=== PATIENT | male | born 1985 | race Caucasian/White ===

== ENCOUNTER 2016-12-09 11:14 | Emergency (ER) | payer SELFPAY ==
[2016-12-09] MEDS ORDERED: OXYCODONE-ACETAMINOPHEN 5-325 MG TABLET PO ONE (11:33)
[2016-12-09] MEDS ORDERED: ONDANSETRON 4 MG TAB.RAPDIS SL ONE (11:33)
--- NOTE | 2016-12-09 11:35 | ER Document Report ---
ED Medical Screen (RME) - General Chief Complaint: Abdominal Pain Stated Complaint: POSSIBLE HERNIA Time Seen by Provider: 12/09/16 11:22 Mode of Arrival: Ambulatory Information source: Patient TRAVEL OUTSIDE OF THE [place] IN LAST 30 DAYS: No - HPI Patient complains to provider of: Hernia pain Onset: This morning Notes: 12/09/16 11:34 Patient is a 31-year-old male with a history of a hernia that was repaired at age 16, over the past few months he has been having problems with the hernia popping out, this morning it was out for approximately 30 minutes before he could get it back in and is now having continued pain and blood in his stools - Related Data Allergies/Adverse Reactions: codeine Allergy (Verified 12/09/16 11:22) Past Medical History - Social History Chew tobacco use (# tins/day): No Frequency of alcohol use: None Drug Abuse: None Family history: Reviewed & Not Pertinent Renal/ Medical History: Denies: Hx Peritoneal Dialysis - Immunizations Hx Diphtheria, Pertussis, Tetanus Vaccination: Yes Physical Exam - Vital signs Vitals: Temp Pulse Resp BP Pulse Ox 98.8 F 100 18 175/97 H 94 12/09/16 11:17 12/09/16 11:17 12/09/16 11:17 12/09/16 11:17 12/09/16 11:17 Course - Vital Signs Vital signs: Temp Pulse Resp BP Pulse Ox 98.8 F 100 18 175/97 H 94 12/09/16 11:17 12/09/16 11:17 12/09/16 11:17 12/09/16 11:17 12/09/16 11:17
--- NOTE | 2016-12-09 11:58 | ER Document Report ---
ED GI/ - General Chief Complaint: Abdominal Pain Stated Complaint: POSSIBLE HERNIA Time Seen by Provider: 12/09/16 11:22 Mode of Arrival: Ambulatory Notes: 31 yo male had left inquinal hernia repair age 16 in [place], noticed it started bulgin when stands for 6 months. Last night while in bed, shifted 1 side to the other, it popped out while using mucles but last night had to push harder to get it back in- in less than 30 minutes. was a relief but still throbbing. 3 bm's since saw red blood with it. No anal pain. TRAVEL OUTSIDE OF THE [place] IN LAST 30 DAYS: No - Related Data Allergies/Adverse Reactions: No Known Allergies Allergy (Verified 12/09/16 12:17) Past Medical History - General Information source: Patient - Social History Smoking Status: Never Smoker Chew tobacco use (# tins/day): No Frequency of alcohol use: None Drug Abuse: None Lives with: Spouse/Significant other Family History: Reviewed & Not Pertinent - Medical History Medical History: Negative Renal/ Medical History: Denies: Hx Peritoneal Dialysis Past Surgical History: Reports: Hx Herniorrhaphy - age 16 left inquinal [place] - Immunizations Hx Diphtheria, Pertussis, Tetanus Vaccination: Yes Review of Systems - Review of Systems Constitutional: No symptoms reported EENT: No symptoms reported Cardiovascular: No symptoms reported Respiratory: No symptoms reported Gastrointestinal: See HPI Genitourinary: No symptoms reported Male Genitourinary: No symptoms reported Musculoskeletal: No symptoms reported Skin: No symptoms reported Hematologic/Lymphatic: No symptoms reported Neurological/Psychological: No symptoms reported Physical Exam - Vital signs Vitals: Temp Pulse Resp BP Pulse Ox 98.8 F 100 18 175/97 H 94 12/09/16 11:17 12/09/16 11:17 12/09/16 11:17 12/09/16 11:17 12/09/16 11:17 Interpretation: Normal - Notes Notes: agreed to be standby for the exam - General General appearance: Appears well, Alert - HEENT Head: Normocephalic, Atraumatic Eyes: Normal Conjunctiva: Normal Pupils: PERRL Neck: Supple. No: Lymphadenopathy - Respiratory Respiratory status: No respiratory distress Chest status: Nontender Breath sounds: Normal Chest palpation: Normal - Cardiovascular Rhythm: Regular Heart sounds: Normal auscultation Murmur: No - Abdominal Inspection: Normal Distension: No distension Bowel sounds: Normal Tenderness: Nontender Organomegaly: No organomegaly - Rectal Hemorrhoids: Internal - anal canal with fissure in 1 hemorrhoid that bled when I touched it. - Genitourinary Tenderness: Other - mild tender over direct left inquinal hernia which reduces easily Scrotum: Normal - Back Back: Normal, Nontender - Extremities General upper extremity: Normal inspection, Nontender, Normal color, Normal ROM , Normal temperature General lower extremity: Normal inspection, Nontender, Normal color, Normal ROM , Normal temperature, Normal weight bearing. No: Derrick's sign - Neurological Neuro grossly intact: Yes Cognition: Normal Orientation: AAOx4 [place] Coma Scale Eye Opening: Spontaneous [place] Coma Scale Verbal: Oriented [place] Coma Scale Motor: Obeys Commands Cloevr Coma Scale Total: 15 Speech: Normal Motor strength normal: LUE, RUE, LLE, RLE Sensory: Normal - Psychological Associated symptoms: Normal affect, Normal mood - Skin Skin Temperature: Warm Skin Moisture: Dry Skin Color: Normal Skin irregularity: negative: Rash Course - Vital Signs Vital signs: Temp Pulse Resp BP Pulse Ox 98.8 F 74 18 160/78 H 98 12/09/16 11:17 12/09/16 13:13 12/09/16 13:13 12/09/16 13:13 12/09/16 13:13 - Laboratory Result Diagrams: 12/09/16 11:47 12/09/16 11:47 Laboratory results interpreted by me: 12/09/16 12/09/16 11:47 11:47 WBC 11.6 H Glucose 121 H Direct Bilirubin 0.6 H AST 202 H ALT 170 H Alkaline Phosphatase 135 H Discharge - Discharge Clinical Impression: elevated liver enzymes, Reducible left inguinal hernia, anal hemorrhoid fissure Condition: Good Disposition: HOME, SELF-CARE Instructions: Anal Fissure ([facility]), Hemorrhoids ([facility]), Hernia ([facility]) Additional Instructions: elevated liver enzymes needs to be worked up with your telesales manager at [facility] no alcohol or tylenol see the general surgeon for the anal hemorrhoids and the left inquinal hernia if you are unable to reduce the hernia like you did today return immediately to the ER, or you develop fever, increased pain wear the hernia belt to keep the hernia reduced if possible no heavy lifting or straining keep stool soft with over the counter stool softner Please complete the patient satisfaction survey if you get one, and return it.. If you do not receive a survey, then you can go to the [facility] website, [email or web address] and place your comments about your very good care. Thank you very much. It was a pleasure being your medical provider today. Forms: Return to Work Referrals: ALLAN SEBASTIAN MD [ACTIVE STAFF] - Follow up tomorrow (call for appointment)
[2016-12-09 12:20] LABS: PROTHROMBIN TIME 12.6 SEC (11.4-15.4)
[2016-12-09 12:21] LABS: PARTIAL THROMBOPLASTIN TIME 27.7 SEC (23.5-35.8)
[2016-12-09 12:28] LABS: ABSOLUTE BASOPHILS # (AUTO) 0.1 10^3/uL (0.0-0.2); ABSOLUTE EOSINOPHILS # (AUTO) 0.1 10^3/uL (0.0-0.6); ABSOLUTE LYMPHOCYTES (AUTO) 2.4 10^3/uL (0.5-4.7); ABSOLUTE MONOCYTES (AUTO) 0.9 10^3/uL (0.1-1.4); ABSOLUTE NEUT (AUTO) 8.1 10^3/uL (1.7-8.2); BASOPHILS % (AUTO) 0.8 % (0-2); EOSINOPHILS % (AUTO) 0.8 % (0-6); HEMATOCRIT 48.1 % (37.9-51.0); HGB HCT DIFFERENCE -0.1; MEAN CORPUSCULAR HEMOGLOBIN 29.4 pg (27.0-33.4); MEAN CORPUSCULAR HGB CONC 33.2 g/dL (32.0-36.0); MEAN CORPUSCULAR VOLUME 89 fl (80-97); MONOCYTES % (AUTO) 7.4 % (3-13); RED BLOOD COUNT 5.43 10^6/uL (4.35-5.55); RED CELL DISTRIBUTION WIDTH 13.7 % (11.5-14.0); WHITE BLOOD COUNT 11.6 10^3/uL (4.0-10.5)
[2016-12-09 12:43] LABS: ALANINE AMINOTRANSFERASE 170 U/L (21-72); ALBUMIN 4.5 g/dL (3.5-5.0); ALKALINE PHOSPHATASE 135 U/L (38-126); ANION GAP 13 (5-19); ASPARTATE AMINO TRANSFERASE 202 U/L (17-59); BILIRUBIN,DIRECT 0.6 mg/dL (0.0-0.4); BILIRUBIN,TOTAL 0.9 mg/dL (0.2-1.3); BLOOD UREA NITROGEN 11 mg/dL (7-20); CALCIUM 9.9 mg/dL (8.4-10.2); CARBON DIOXIDE 24 mmol/L (22-30); CHLORIDE 104 mmol/L (98-107); CREATININE RESULT 0.65 mg/dL (0.52-1.25); GLUCOSE 121 mg/dL (75-110); POTASSIUM 4.5 mmol/L (3.6-5.0); SODIUM 140.9 mmol/L (137-145); TOTAL PROTEIN 7.6 g/dL (6.3-8.2)
[2016-12-09 13:52] VITALS: BP 160/78
== END 2016-12-09 13:18 | disposition home or self-care (01) ==
LOC: ER 11:14
DX: K40.90 Unilateral inguinal hernia, without obstruction or gangrene, not specified as recurrent (principal); K64.8 Other hemorrhoids; K60.2 Anal fissure, unspecified; R74.8 Abnormal levels of other serum enzymes; R10.9 Unspecified abdominal pain
CPT/HCPCS: 99284; 36415; 85025; 85610; 85730; 80053; S0119

== ENCOUNTER 2017-11-10 09:13 | Emergency (ER) | payer MEDICAID ==
[2017-11-10 09:23] VITALS: BP 143/77
--- NOTE | 2017-11-10 09:54 | ER Document Report ---
ED Medical Screen (RME) - General Chief Complaint: Abscess Stated Complaint: POSSIBLE ABSCESS Time Seen by Provider: 11/10/17 09:40 Mode of Arrival: Ambulatory Information source: Patient Notes: Patient presents complaining of abscess to the buttocks for the past 3 days. Patient denies any fever. TRAVEL OUTSIDE OF THE [place] IN LAST 30 DAYS: No - Related Data Allergies/Adverse Reactions: No Known Allergies Allergy (Verified 12/09/16 12:17) Past Medical History - Social History Chew tobacco use (# tins/day): No Frequency of alcohol use: None Drug Abuse: Methamphetamine Family history: Reviewed & Not Pertinent Renal/ Medical History: Denies: Hx Peritoneal Dialysis Past Surgical History: Reports: Hx Herniorrhaphy - age 16 left inquinal in [place] - Immunizations Hx Diphtheria, Pertussis, Tetanus Vaccination: Yes Physical Exam - Vital signs Vitals: Temp Pulse Resp BP Pulse Ox 98.3 F 67 18 143/77 H 100 11/10/17 09:22 11/10/17 09:22 11/10/17 09:22 11/10/17 09:22 11/10/17 09:22 - Rectal Hemorrhoids: Other - Perianal abscess Course - Vital Signs Vital signs: Temp Pulse Resp BP Pulse Ox 98.3 F 67 18 143/77 H 100 11/10/17 09:22 11/10/17 09:22 11/10/17 09:22 11/10/17 09:22 11/10/17 09:22
--- NOTE | 2017-11-10 10:03 | ER Document Report ---
ED General - General Chief Complaint: Abscess Stated Complaint: POSSIBLE ABSCESS Time Seen by Provider: 11/10/17 09:40 Mode of Arrival: Ambulatory TRAVEL OUTSIDE OF THE [place] IN LAST 30 DAYS: No - HPI Notes: 32-year-old male presents to the ED with an already drained rectal external abscess that started 3 days ago. States drainage started once he was placed in a room in triage. States he smelled something "disgusting". Patient denies a history of MRSA. Has not tried any [id number] medications. Worse with time, nothing makes better. Pain is 8 out of 10, which has decreased since abscess had started to drain. Denies any fevers or chills. History of abscesses in same area. Denies fevers, chills, chest pain,palpitations, shortness of breath, dyspnea, nausea, vomiting, diarrhea, abdominal pain, hematuria,blurred vision, double vision, loss of vision, speech changes, LH, dizziness, syncope, headaches, wheezing, ST, URI, neck pain, weakness, bowel or bladder dysfunction, saddle anesthesia, numbness or tingling in bilateral upper or lower extremities equally, muscle paralysis, weakness in bilateral upper or lower extremities equally or rash. Denies IV drug use. - Related Data Allergies/Adverse Reactions: No Known Allergies Allergy (Verified 12/09/16 12:17) Past Medical History - General Information source: Patient - Social History Smoking Status: Current Some Day Smoker Chew tobacco use (# tins/day): No Frequency of alcohol use: None Drug Abuse: Marijuana Family History: Reviewed & Not Pertinent Patient has suicidal ideation: No Patient has homicidal ideation: No Renal/ Medical History: Denies: Hx Peritoneal Dialysis Past Surgical History: Reports: Hx Herniorrhaphy - age 16 left inquinal in [place] - Immunizations Hx Diphtheria, Pertussis, Tetanus Vaccination: Yes Review of Systems - Review of Systems Constitutional: No symptoms reported EENT: No symptoms reported Cardiovascular: No symptoms reported Respiratory: No symptoms reported Gastrointestinal: No symptoms reported Genitourinary: No symptoms reported Male Genitourinary: No symptoms reported Musculoskeletal: No symptoms reported Skin: See HPI Hematologic/Lymphatic: No symptoms reported Neurological/Psychological: No symptoms reported Physical Exam - Vital signs Vitals: Temp Pulse Resp BP Pulse Ox 98.3 F 67 18 143/77 H 100 11/10/17 09:22 11/10/17 09:22 11/10/17 09:22 11/10/17 09:22 11/10/17 09:22 - Notes Notes: PHYSICAL EXAMINATION: GENERAL: Well-appearing, well-nourished and in no acute distress. HEAD: Atraumatic, normocephalic. EYES: Pupils equal round and reactive to light, extraocular movements intact, sclera anicteric, conjunctiva are normal. ENT: Nares patent, oropharynx clear without exudates. Moist mucous membranes. NECK: Normal range of motion, supple without lymphadenopathy LUNGS: Breath sounds clear to auscultation bilaterally and equal. No wheezes rales or rhonchi. HEART: Regular rate and rhythm without murmurs ABDOMEN: Soft, nontender, nondistended abdomen. No guarding, no rebound. No masses appreciated. Musculoskeletal: Normal range of motion, no pitting or edema. No cyanosis. NEUROLOGICAL: Cranial nerves grossly intact. Normal speech, normal gait. Normal sensory, motor exams PSYCH: Normal mood, normal affect. SKIN: Warm, Dry, normal turgor, no rashes or lesions noted. Right external rectal abscess approximately 2 cm x 3 0.5 cm with purulent drainage on evaluation, no surrounding cellulitis. No surrounding lymphadenopathy. Course - Re-evaluation Re-evalutation: 11/10/17 10:30 32yr old male who is afebrile, vitals stable and in no distress presents for already draining rectal abscess. On evaluation, abscess had already drained. This provider drained what was left of abscess, irrigated with high-pressure normal saline, we did not need packing. Denies any fevers or chills. Cultured. No tunneling noted. No need for wound packing. Patient given [address] [place] was to go for pain control advised to not drive, drink alcohol or operate heavy machinery as medication because sedation or impairment of cognition. Advised to soak in hot bath to help clean wound, wash with soap and water twice a day, observe area for any erythema, induration or fluctuatance. I have reevaluated this patient multiple times and no significant life threatening changes, no signs of toxicity, sepsis or peritonitis are noted. The patient and I have discussed the diagnosis and risks, and we agree with discharging home and close follow-up. We also discussed returning to the Emergency Department immediately if new or worsening symptoms occur with the understanding that symptoms and presentations can change. At this time will discharge with return precautions and follow-up recommendations. Verbal discharge instructions given a the bedside and opportunity for questions given. We have discussed the symptoms which are most concerning (e.g., saddle anesthesia, urinary or bowel incontinence or retention, changing or worsening pain) that necessitate immediate return. Medication warnings reviewed. All questions and concerns answered by this provider. Patient is in agreement with this plan and has verbalized understanding of return precautions and the need for primary care follow-up in the next 24-72 hours. Patient verbalized understanding of plan of care and agree with plan of care. - Vital Signs Vital signs: Temp Pulse Resp BP Pulse Ox 98.3 F 67 18 143/77 H 100 11/10/17 09:22 11/10/17 09:22 11/10/17 09:22 11/10/17 09:22 11/10/17 09:22 Discharge - Discharge Clinical Impression: Abscess Condition: Stable Disposition: HOME, SELF-CARE Instructions: Abscess ([facility]), Cephalexin ([facility]), Oral Narcotic Medication ([facility]), Trimethoprim-Sulfa ([facility]) Additional Instructions: You were seen for an abscess that required drainage. Please clean this area with soap and water twice daily and apply a topical antibiotic. Dress the area after each cleaning. Please return if you develop fever, vomiting, the pain at the site worsens, you notice spreading redness from the area, or you have any other symptoms that are concerning to you.. Yogurt daily to prevent loose stool. Follow-up with primary care provider within the next 3 days Return immediately for any new or worsening symptoms. Follow up with primary care provider, call tomorrow to make followup appointment. Prescriptions: Cephalexin Monohydrate [Keflex 500 mg Capsule] 500 mg PO Q6H 5 Days #20 capsule Sulfamethoxazole/Trimethoprim [Bactrim Ds Tablet] 1 each PO BID #20 tablet Forms: Return to Work Referrals: SHAMA ONOFRE MD [ACTIVE STAFF] - Follow up as needed
[2017-11-10] MEDS ORDERED: HYDROCODONE/ACETAMINOPHEN 5-325 MG (6 TAB/ER DISP) PO PRN (10:29)
== END 2017-11-10 10:55 | disposition home or self-care (01) ==
LOC: ER 09:13
DX: K61.1 Rectal abscess (principal); F17.200 Nicotine dependence, unspecified, uncomplicated
CPT/HCPCS: 87070; 87077; 87186; 87205; 99283